=== PATIENT | female | born 1990 | race Caucasian/White ===

== ENCOUNTER 2025-08-09 20:04 | Emergency (ER) | payer MEDICAID, SELFPAY ==
[2025-08-09 20:05] VITALS: BP 168/82; PULSE 68; RESP 15; TEMP 36.6; O2SAT 100; BMI 57.4
--- NOTE | 2025-08-09 20:17 | ED.VIS.GI ---
HPI HPI - GI History of Present Illness Chief Complaint: Nausea/Vomiting/Diarrhea Informant: patient Abdominal Pain/Flank Pain Onset: Weeks (2) Context: Sudden Onset Timing: Intermittent Quality: Sharp Location: Epigastric Worsened by: Food Relieved by: - (Crackers and broth) Nausea/Vomiting/Emesis GI Symptom: Positive for Nausea and Vomiting Onset: Weeks (2) Quality: Positive for Nonbilious; Negative for Blood streaks, Coffee ground or Hematemesis Diarrhea/Melena/Hematochezia GI Symptom: Positive for Diarrhea; Negative for Melena or Hematochezia Stool Quality: Positive for Watery Associated Symptoms Associated Symptoms: Positive for Frequency; Negative for Dysuria or Hematuria LMP: 07/04/2025 Narrative Narrative: Patient presents with abdominal pain, nausea, vomiting, and diarrhea that has been intermittent for the past 2 weeks. Patient states her pain is over the epigastric area. Patient states it is sharp. Patient states it only comes on after she eats. Patient states she was able to eat some crackers and broth which seemed to help with her pain. Patient states every time she eats she has nausea and vomiting. Patient denies any hematemesis or coffee-ground emesis. Patient admits to watery diarrhea. Patient denies any melena or hematochezia. Patient admits to some urinary frequency but denies any dysuria or hematuria. Patient states this feels similar to prior episodes of colitis. Prior similar symptoms: Yes PFSH PFSH Medical History (Updated 08/09/25 @ 22:[address] Juan Lenz, ) Hypothyroid Diabetes Hypertension PCOS (polycystic ovarian syndrome) Colitis Home Medications ?Medication ?Instructions ?Recorded ?Last Taken ?Type amoxicillin 875 mg-potassium 875 mg PO Q12H #20 TABLETS 08/09/25 Unknown Rx clavulanate 125 mg tablet Allergy/AdvReac Type Severity Reaction Status Date / Time bee venom protein (honey Allergy Severe Anaphylaxis Verified 08/09/25 20:05 bee) (bees) ciprofloxacin (From Cipro) Allergy Intermediate MYALGIAS Verified 08/09/25 20:05 Surgical History (Updated 08/09/25 @ 21:[address] Juan Lenz, DO) Hx of cholecystectomy Social History Smoking Status: Current every day smoker tobacco type: e-cigarettes ROS ROS ED Constitutional Constitutional ED: Reports fever(s) and subjective; Denies chills Eyes Eyes: Denies blurry vision or change in vision ENT ENT ED: Denies rhinorrhea or sore throat Cardiovascular Cardiovascular: Denies chest pain or palpitations Respiratory/Chest Respiratory/Chest: Denies cough or dyspnea Gastrointestinal Gastrointestinal: Reports abdominal pain, diarrhea, nausea and vomiting; Denies melena Genitourinary Genitourinary ED: Denies dysuria or hematuria Musculoskeletal Musculoskeletal: Reports back pain; Denies neck pain Integumentary Denies abscess or rash Neurologic Neurologic: Denies headache(s) or weakness Allergic/Immunologic Allergic/Immunologic ED: Denies mouth swelling or urticaria EXAM Physical Exam Const Vital Signs: 08/09/25 20:05 Temperature 97.8 F Temperature Source Temporal Pulse Rate 68 Respiratory Rate 15 Blood Pressure 168/82 H Blood Pressure Mean 110 Pulse Ox 100 Oxygen Delivery Method Room Air Positive well nourished and well developed Constitutional Narrative: BMI is 57.4 General Appearance ED: well developed and NAD HEENT Reports moist mucous membranes Neck supple and no JVD Resp normal respiratory effort and clear to auscultation bilaterally Cardio regular rate and regular rhythm GI non-distended Palpation: soft and tender epigastric; Negative for guarding or rebound tenderness present Neuro CN's II-XII intact bilaterally, moves all extremities and no sensory deficits noted Sensorium / Orientation: alert Motor Exam: strength 5/5 throughout Psych mental status grossly normal and thought process normal MDM MDM MDM Narrative Medical decision making narrative: Differential diagnosis includes colitis, diverticulitis, bowel obstruction, perforation, peptic ulcer disease, pancreatitis, duodenal ulcer, dehydration, and electrolyte abnormality. CBC will be obtained to assess for leukocytosis and anemia. Comprehensive metabolic profile will be obtained to assess for hepatic function, renal function, and electrolyte abnormality. Lipase will be obtained to assess for pancreatitis. Serum hCG will be obtained to assess for . Urinalysis will be obtained to assess for urinary tract infection and hematuria. CT scan of the abdomen and pelvis will be obtained to assess for bowel obstruction, perforation, diverticulitis, colitis, and pancreatitis. History & Record Review Additional record(s) reviewed:: Prior outpatient record and Prior labs Lab Data Attestation: I reviewed the patient's lab results. Lab results narrative: CBC was reviewed. There is a leukocytosis of 17.5. Platelets are slightly elevated at 496. The remainder is within normal limits. Comprehensive metabolic profile was reviewed and was essentially within normal limits. Lipase was reviewed and was normal at 26. Serum hCG was reviewed and was negative. Urinalysis was reviewed. Leukocyte esterase was 500. There are 10-25 white blood cells and 5-10 epithelial cells. There is no bacteria noted. Labs: Laboratory Results - last 24 hr 08/09/25 08/09/25 20:20 20:25 WBC 17.5 H RBC 4.85 Hgb 14.3 Hct 43.9 MCV 90.5 MCH 29.5 MCHC 32.6 RDW Std Deviation 41.3 RDW Coeff of Adolfo 12.6 Plt Count 496 H MPV 11.2 Immature Gran % (Auto) 0.400 Neut % (Auto) 60.9 Lymph % (Auto) 29.6 Thomas % (Auto) 6.6 Eos % (Auto) 1.8 Baso % (Auto) 0.7 Absolute Neuts (auto) 10.6 H Absolute Lymphs (auto) 5.16 H Nucleated RBC % 0 Sodium 138 Potassium 3.7 Chloride 99 Carbon Dioxide 22.5 Anion Gap 16 H BUN 9 Creatinine 0.73 Estim Creat Clear Calc 147.78 Est GFR (MDRD) Non-Af 109 BUN/Creatinine Ratio 12.6 Glucose 117 H Calcium 9.7 Total Bilirubin 0.43 AST 24 ALT 29 Alkaline Phosphatase 69 Total Protein 7.8 Albumin 4.3 Globulin 3.5 Albumin/Globulin Ratio 1.2 Lipase 26 Serum , Qual NEGATIVE Urine Color Straw Urine Clarity Cloudy Urine pH 6.0 Ur Specific [place] 1.010 Urine Protein 30 H Urine Glucose (UA) Normal Urine Ketones Negative Urine Occult Blood 25 H Urine Nitrite Negative Urine Bilirubin Negative Urine Urobilinogen Normal Ur Leukocyte Esterase 500 H Urine RBC 0-5 SEEN Urine WBC 10-25 SEEN Ur Squamous Epith Cells 5-10 SEEN Urine Bacteria 0 SEEN Urine Mucus 0 SEEN Radiography Diagnostic Testing: Clinical Impression(s) from Imaging Studies Abdomen/Pelvis CT 08/09/25 20:50 IMPRESSION: Questionable mild wall thickening of the transverse, descending, and sigmoid colon. This could be due to decompression, however this may represent mild colitis. Please correlate clinically. Prominent right ovarian physiologic follicle measuring 1.3 cm. Reading Location: [id number] CT scan of the abdomen and pelvis was obtained. There is mild wall thickening of the transverse, descending, and sigmoid colon. This could represent mild colitis. There is a right ovarian cyst. This was interpreted by the radiologist and was also independently reviewed by myself. Treatment and Re-Evaluation :: Patient was given IV fluids, morphine, and Zofran. Patient was feeling better on reevaluation. Patient was given a dose of Augmentin here. Patient was given a prescription for Augmentin. Patient was instructed to follow-up with her primary care physician in 5 to 7 days. Patient understood and was agreeable with the plan. All questions were answered. Discharge Plan Triage Chief Complaint: Nausea/Vomiting/Diarrhea ED Provider: Juan Lenz Dx/Rx/DC Orders Clinical Impression: Colitis, Abdominal pain Instructions: ED Understanding Colitis Prescriptions: New amoxicillin-pot clavulanate 875-125 mg tablet 875 mg PO Q12H Qty: 20 0RF Primary Care Provider: Care Physician,No Primary Referrals: Ida Kong MD [Med Staff - [facility] Lead, Internal Medicine - [facility]] - 5-7 Days Care Physician,No Primary [Primary Care Provider, Medical] Print Language: Bahamian Disposition Disposition: Home, Self Care
--- NOTE | 2025-08-09 20:50 | CT_ITS ---
PROCEDURE: ABDOMEN/PELVIS W IV CONT ONLY 08/09/2025 REASON FOR EXAM: ABDOMINAL PAIN TECHNIQUE: Procedure Code: [id number] Modality: CT Procedure: ABDOMEN/PELVIS W IV CONT ONLY Coronal and Sagittal reconstruction series were provided. CONTRAST: VOLUME: mL One or more dose reduction techniques were used (e.g., Automated exposure control, adjustment of the mA and/or kV according to patient size, use of iterative reconstruction technique. FINDINGS: The visualized lung bases are clear. The liver, pancreas, spleen, adrenal glands, kidneys, and urinary bladder appear unremarkable. No evidence of a bowel obstruction. Questionable mild wall thickening of the transverse, descending, and sigmoid colon, which could be due to decompression. Alternatively, this may represent mild colitis. Small 1.3 cm rounded low-density in the right adnexa (series 2, image 93) may represent a prominent physiologic ovarian follicle. The appendix is not clearly identified, however no inflammatory changes are noted in the pericecal region. Cholecystectomy. No intraperitoneal free air or free fluid. No abdominal nor pelvic lymphadenopathy. No acute osseous abnormality. No acute fracture. CT/Abdomen/Pelvis W IV Cont ONLY IMPRESSION: Questionable mild wall thickening of the transverse, descending, and sigmoid co basil. This could be due to decompression, however this may represent mild colitis. Please correlate clinically. Prominent right ovarian physiologic follicle measuring 1.3 cm. Reading Location: [id number]
[2025-08-09 21:12] LABS: Mucous, Urine 0 SEEN /hpf (<or=2+)
[2025-08-09] MEDS: 0.9% Normal Saline (1000mL) 1,000 ML 1000 ML IV (21:15)
[2025-08-09 21:18] LABS: Hematocrit 43.9 % (37-47); Hemoglobin 14.3 g/dL (12.0-15.0); Immature Granulocytes Count 0.070 X10^3/uL (0.0-0.0); Mean Corp Hgb Conc 32.6 g/dL (32-36); Mean Corpuscular Volume 90.5 fL (81-99); Mean Platelet Vol. 11.2 fl (6.2-12.0); NRBC Flagged by Analyzer 0 % (0-5); POSITIVE DIFFERENTIAL YES; Platelet Count 496 K/mm3 (150-450); RBC Distribution Width CV 12.6 % (11.6-14.6); RBC Distribution Width SD 41.3 fl (35.1-43.9); Red Blood Count 4.85 M/mm3 (4.2-5.4); White Blood Count 17.5 K/mm3 (4.4-11.0)
[2025-08-09 21:21] LABS: Internal QC Validated? YES +Cl - CLEAR BKGD; Pregnancy, Serum, hCG Quali. NEGATIVE Negative; Record Kit Lot#, Serum Preg. 980607
[2025-08-09 21:25] LABS: AST(SGOT) 24 U/L (<=31); Alanine Aminotransfer ALT/SGPT 29 U/L (<=34); Albumin, Serum 4.3 g/dL (3.5-5.0); Alkaline Phosphatase 69 U/L (35-104); Anion Gap 16 (5-15); BUN 9 mg/dL (4-19); BUN/Creat Ratio 12.6 RATIO (10-20); Calcium,Total 9.7 mg/dL (7.6-11.0); Carbon Dioxide 22.5 mmol/L (21.0-32.0); Chloride 99 mmol/L (98-108); Estimated Creatinine Clearance 147.78 ml/min (50-250); Globulin 3.5 g/dL (2.2-4.2); Glucose 117 mg/dL (70-99); Lipase 26 U/L (13-75); Potassium 3.7 mmol/L (3.3-5.1)
[2025-08-09 21:30] LABS: Differential Indicated SCAN CRITERIA MET
[2025-08-09 21:46] LABS: Color, Urine Straw (Yellow); Glucose, Dipstick Normal (Normal); Ketone-Dipstick Negative (Negative); Leukocyte Esterase-Dipstick 500 /ul (Negative); Nitrite-Dipstick Negative (Negative); Occult Blood-Urine 25 /ul (Negative); Protein-Dipstick 30 mg/dl (Negative); Specific Gravity, Urine 1.010 (1.002-1.030); Urine Bilirubin Dipstick Negative (Negative)
[2025-08-09 22:05] VITALS: BP 102/68; PULSE 61; RESP 16; O2SAT 100
[2025-08-09 22:40] LABS: Squamous Epithelial Cells - UA 5-10 SEEN /hpf (5-10)
[2025-08-09 22:41] LABS: Red Blood Cells-Urine 0-5 SEEN /hpf (0-5)
[2025-08-09 23:02] VITALS: BP 102/68; PULSE 61; RESP 16; TEMP 36.8; O2SAT 100
== END 2025-08-09 23:08 | disposition home or self-care (01) ==
PROVIDERS: Emergency Provider Emergency Medicine; Visit Provider Emergency Medicine
DX: K52.9 Noninfective gastroenteritis and colitis, unspecified (principal); E11.9 Type 2 diabetes mellitus without complications; I10 Essential (primary) hypertension; R35.0 Frequency of micturition; R10.13 Epigastric pain; F17.290 Nicotine dependence, other tobacco product, uncomplicated
CPT/HCPCS: 74177; 80053; 81001; 83690; 84703; 85025; 96361; 96374; 96375; 99283; Q9967; J2405